=== PATIENT | female | born 1970 | race Caucasian/White ===

== ENCOUNTER 2019-05-15 13:09 | Emergency (ER) | payer SELFPAY ==
[~2019-05-15] VITALS: Ht 162.6 cm; Wt 67.1 kg
[~2019-05-15 13:09] MED LIST: CEPH-570 PO
--- NOTE | 2019-05-15 13:25 | NUR ---
CLINT HURTADO 007 From Home "URI/Been sick last week recently dx URI last sunday and was given meds but not better". AFEBRILE. NON-PRODUCTICE COUGH AND BODY CHILLS/ACHES. DENIES SOB, PAIN, WEAKNESS. NO ACUTE DISTRESS NOTED. ON MONITOR AND READY FOR EVAL.
--- NOTE | 2019-05-15 13:40 | NUR ---
IV ACCESS OBTAINED. BLOOD DRAWN, IVF INFUSING. PT DAIJA WELL. FLU SWAB SENT TO STAT LAB
[2019-05-15 13:45] LABS: BASOPHILS % (AUTO) 0.3 % (0.0-2.0); EOSINOPHILS % (AUTO) 1.9 % (0.0-6.0); HEMATOCRIT 41 % (33-45); HEMOGLOBIN 13.9 g/dL (11.5-14.8); LYMPHOCYTES # (AUTO) 1.5 /CMM (0.8-4.8); LYMPHOCYTES % (AUTO) 19.7 % (20.0-44.0); MEAN CORPUSCULAR HGB CONC 34 g/dl (31.0-36.0); MEAN CORPUSCULAR VOLUME 95 fL (82-100); MONOCYTES # (AUTO) 0.3 /CMM (0.1-1.30); MONOCYTES % (AUTO) 3.6 % (2.0-12.0); NEUTROPHILS # (AUTO) 5.8 /CMM (1.8-8.9); NEUTROPHILS % (AUTO) 74.5 % (43.0-81.0); PLATELET COUNT (AUTO) 207 /CMM (150-450); RED BLOOD CELL COUNT(AUTO) 4.38 MIL/uL (4.0-5.2); WHITE BLOOD COUNT (AUTO) 7.7 K/uL (4.3-11.0)
[2019-05-15] MEDS ORDERED: LORA10TA7 PO (13:47)
[2019-05-15] MEDS: IV NS 0.9% 1,000 ML BAG IV ONE (13:47)
[2019-05-15 13:49] LABS: CREATININE 0.8 mg/dL (0.6-1.3); POTASSIUM 3.2 mmol/L (3.5-5.1)
[2019-05-15] MEDS ORDERED: IBUPROFEN 600 MG TABLET PO ONE (13:50)
[2019-05-15] MEDS: IBUPROFEN 600 MG TABLET PO ONE (13:55)
--- NOTE | 2019-05-15 14:16 | NUR ---
Patient is resting comfortably in bed with eyes closed. Easily aroused. VSS
--- NOTE | 2019-05-15 14:47 | NUR ---
Patient discharged to home in stable condition. Written and verbal after care instructions given. Patient verbalizes understanding of instruction.IV removed. Catheter intact and site benign. Pressure and 4x4 applied to site. No bleeding noted.
[2019-05-15 14:48] VITALS: BP 115/70
== END 2019-05-15 14:48 | disposition home or self-care (01) ==
LOC: ER 13:12
DX: J10.1 Influenza due to other identified influenza virus with other respiratory manifestations (principal); R42 Dizziness and giddiness; Z79.899 Other long term (current) drug therapy
CPT/HCPCS: 36415; 80048; 85025; 87804 ×2; 96360; 99283; J7030